=== PATIENT | male | born 1955 | race Caucasian/White ===

== ENCOUNTER 2018-02-05 14:49 | Inpatient (IN) | payer BC ==
[~2018-02-05] VITALS: Ht 175.3 cm; Wt 66.4 kg
[~2018-02-05 14:49] MED LIST: ALBU18HF INH; ASCO10004 PO; CALC1CAP8 PO; CEPH-368 PO; CHOL10003 PO; CYAN10005 PO; DOCU-131 PO; EMERGEN C PO; FLUT1DIS3 INH; HYDR2TAB29 PO; IPRA3AMP INH; METH750T87 PO; MORP-52 PO; MULT-717 PO; NAPR220C2 PO; OXYC-307 PO; OXYC15TA60 PO; POTA99TA3 PO; TAMS-11 PO; TIOT18CA INH; TIZA2TAB PO; ZINC100T PO; dayquil PO; magnesium PO
[2018-02-05 15:29] LABS: ALBUMIN 3.6 g/dL (3.4-5.0); ANION GAP 10 mmol/L (5-15); CALCIUM 8.8 mg/dL (8.5-10.1); CHLORIDE 101 mmol/L (98-107)
[2018-02-05 15:30] LABS: CREATININE 0.86 mg/dL (0.7-1.3)
[2018-02-05 15:36] LABS: MEAN CORPUSCULAR HGB CONC 34.2 g/dL (33.2-36.2); MEAN CORPUSCULAR VOLUME 96.7 fL (81-97); RED BLOOD COUNT 4.29 x10^6/uL (4.38-5.82)
[2018-02-05 15:42] LABS: MEAN PLATELET VOLUME 11.2 fL (7.4-10.4); PLATELET COUNT 57 x10^3/uL (130-400)
[2018-02-05 15:44] LABS: MD YES
[2018-02-05 16:10] LABS: BAND#(MANUAL) 1.95 x10^3/uL; BANDS%(MANUAL) 10 % (0-7); LYMPH#(MANUAL) 0.78 x10^3/uL (1-3.4); LYMPHS% (MANUAL) 4 % (22-44); MONOS#(MANUAL) 0.59 x10^3/uL (0.3-2.7); MONOS% (MANUAL) 3 % (2-9); SEG#(MANUAL) 16.19 x10^3/uL (1.8-6.8); SEGS% (MANUAL) 83 % (42-75)
[2018-02-05 16:12] LABS: <PLATELET ESTIMATE> DECREASED; <RBC MORPHOLOGY> NORMAL; GIANT PLATELETS 1+; LARGE PLATELETS 1+
[2018-02-05 16:13] LABS: PMNS WITH VACUOLES 1+
[2018-02-05] MEDS ORDERED: SODIUM CHLORIDE 0.9% 1,000ML IVBOLUS ONE (17:30)
[2018-02-05] MEDS ORDERED: SODIUM CHLORIDE FLUSH 10ML SYR IVF ONE (17:30)
[2018-02-05] MEDS ORDERED: MORPHINE SULFATE 4 MG/ML, 1ML IVPush PRN (17:30)
[2018-02-05] MEDS ORDERED: ONDANSETRON 2MG/ML, 2ML IVPush ONE (17:30)
[2018-02-05 18:06] LABS: MICROSCOPIC INDICATED
[2018-02-05 18:10] LABS: CULTURE INDICATED? YES
[2018-02-05] MEDS ORDERED: CEFTRIAXONE 1,000 MG in SODIUM CHLORIDE 0.9% 50 ML IV ONE (18:30)
[2018-02-05] MEDS ORDERED: CEFTRIAXONE PMX 1GM/50ML 50 ML ONE (18:54)
[2018-02-05] MEDS ORDERED: ALBUTEROL SULFATE 2.5 MG/3 ML NPPB PRN (19:30)
[2018-02-05] MEDS ORDERED: hydrALAzine 20 MG/ML, 1ML IVPush PRN (19:30)
[2018-02-05] MEDS: CEFTRIAXONE 1,000 MG in DEXTROSE 5% 50 ML IV SCH (19:30)
[2018-02-05] MEDS ORDERED: ONDANSETRON 2MG/ML, 2ML IVPush PRN (19:30)
[2018-02-05 19:40] VITALS: BP 123/77
[2018-02-05 20:06] VITALS: BP 123/77
[2018-02-05] MEDS: SODIUM CHLORIDE 0.9% 1,000 ML IV SCH (20:17)
[2018-02-05] MEDS: TAMSULOSIN 0.4 MG CAP.ER.24H PO SCH (20:17)
[2018-02-05] MEDS: KETOROLAC 30 MG/1 ML IM SCH (20:18)
[2018-02-05] MEDS ORDERED: ALBUTEROL/IPRATROPIUM 2.5MG/0.5MG, 3 ML NPPB PRN (23:00)
[2018-02-05] MEDS ORDERED: ACETAMINOPHEN 500 MG TABLET ONE (23:14)
[2018-02-05] MEDS: ACETAMINOPHEN 325 MG TABLET PO PRN (23:16)
[2018-02-06] MEDS: KETOROLAC 30 MG/1 ML IM SCH (01:54)
[2018-02-06 02:03] VITALS: BP 124/74
[2018-02-06 02:18] VITALS: BP 135/84
[2018-02-06] MEDS: SODIUM CHLORIDE 0.9% 1,000 ML IV SCH ×3 (03:46→19:55)
[2018-02-06 05:04] LABS: MEAN CORPUSCULAR HEMOGLOBIN 33.4 pg (27.5-34.5); MEAN CORPUSCULAR HGB CONC 34.3 g/dL (33.2-36.2); MEAN CORPUSCULAR VOLUME 97.3 fL (81-97); RED BLOOD COUNT 3.63 x10^6/uL (4.38-5.82)
[2018-02-06 05:06] LABS: PLATELET COUNT 39 x10^3/uL (130-400)
[2018-02-06 05:12] LABS: ALBUMIN 2.7 g/dL (3.4-5.0); ANION GAP 6 mmol/L (5-15); CALCIUM 8.2 mg/dL (8.5-10.1); CHLORIDE 106 mmol/L (98-107)
[2018-02-06 05:16] LABS: ALANINE AMINOTRANSFERASE 81 U/L (12-78); ALKALINE PHOSPHATASE 456 U/L (45-117); BILIRUBIN,TOTAL 0.9 mg/dL (0.2-1.0); CREATININE 0.72 mg/dL (0.7-1.3); TOTAL PROTEIN 5.5 g/dL (6.4-8.2)
[2018-02-06] MEDS ORDERED: ACETAMINOPHEN 500 MG TABLET ONE (05:21)
[2018-02-06 05:55] LABS: MD YES
[2018-02-06 05:56] LABS: <PLATELET ESTIMATE> DECREASED; <RBC MORPHOLOGY> NORMAL; BAND#(MANUAL) 0.45 x10^3/uL; BANDS%(MANUAL) 3 % (0-7); LYMPHS% (MANUAL) 4 % (22-44); MONOS% (MANUAL) 6 % (2-9); SEG#(MANUAL) 13.05 x10^3/uL (1.8-6.8); SEGS% (MANUAL) 87 % (42-75)
[2018-02-06] MEDS: ACETAMINOPHEN 325 MG TABLET PO PRN (05:56)
[2018-02-06 05:57] LABS: LARGE PLATELETS 1+
[2018-02-06] MEDS: KETOROLAC 30 MG/1 ML IV SCH ×3 (07:54→19:56)
[2018-02-06] MEDS: FLUTICASONE/VILANTEROL 100-25MCG/INH INH SCH (07:54)
[2018-02-06] MEDS: POLYETHYLENE GLYCOL 17 GM PACKET PO SCH (07:54)
[2018-02-06 08:42] VITALS: BP 134/77
[2018-02-06] MEDS ORDERED: IPRATROPIUM 0.5 MG/2.5 ML INHA NPPB SCH (09:00)
[2018-02-06 10:26] LABS: HIT RESULT NEGATIVE (NEGATIVE)
[2018-02-06 14:01] VITALS: BP 153/80
[2018-02-06 19:06] VITALS: BP 117/63
[2018-02-06] MEDS: CEFTRIAXONE 1,000 MG in DEXTROSE 5% 50 ML IV SCH (19:55)
[2018-02-06] MEDS: TAMSULOSIN 0.4 MG CAP.ER.24H PO SCH (19:56)
[2018-02-07] MEDS: KETOROLAC 30 MG/1 ML IV SCH ×3 (03:06→19:27)
[2018-02-07] MEDS: SODIUM CHLORIDE 0.9% 1,000 ML IV SCH ×3 (05:25→21:09)
[2018-02-07 05:36] LABS: MEAN CORPUSCULAR HEMOGLOBIN 33.4 pg (27.5-34.5); MEAN CORPUSCULAR HGB CONC 34.3 g/dL (33.2-36.2); MEAN CORPUSCULAR VOLUME 97.3 fL (81-97); MEAN PLATELET VOLUME 11.2 fL (7.4-10.4); PLATELET COUNT 55 x10^3/uL (130-400); RED BLOOD COUNT 3.39 x10^6/uL (4.38-5.82); RED CELL DISTRIBUTION WIDTH 12.7 % (9.4-14.8)
[2018-02-07 05:43] LABS: ALANINE AMINOTRANSFERASE 61 U/L (12-78); ALBUMIN 2.4 g/dL (3.4-5.0); ANION GAP 10 mmol/L (5-15); CALCIUM 7.3 mg/dL (8.5-10.1); CHLORIDE 106 mmol/L (98-107); CREATININE 0.63 mg/dL (0.7-1.3)
[2018-02-07 05:45] LABS: ALKALINE PHOSPHATASE 122 U/L (45-117); BILIRUBIN,TOTAL 0.9 mg/dL (0.2-1.0); TOTAL PROTEIN 5.1 g/dL (6.4-8.2)
[2018-02-07 06:08] LABS: BASOPHILS # (AUTO) 0.01 x10^3/uL (0-0.1); BASOPHILS % (AUTO) 0 % (0-1); EOSINOPHILS % (AUTO) 0 % (1-7); LYMPHOCYTES # (AUTO) 1.09 x10^3/uL (1-3.4); LYMPHOCYTES % (AUTO) 8 % (22-44); MD SCAN; MONOCYTES # (AUTO) 1.45 x10^3/uL (0.2-0.8); MONOCYTES % (AUTO) 11 % (2-9); NEUTROPHILS # (AUTO) 10.75 x10^3/uL (1.8-6.8); NEUTROPHILS % (AUTO) 81 % (42-75)
[2018-02-07] MEDS ORDERED: MAGNESIUM SULFATE PMX 2GM/50ML 50 ML IV ONE (08:30)
[2018-02-07 08:49] VITALS: BP 127/75
[2018-02-07] MEDS: ACETAMINOPHEN 325 MG TABLET PO PRN ×2 (08:56→16:30)
[2018-02-07] MEDS: DIAZEPAM 5 MG TABLET PO PRN (08:57)
[2018-02-07] MEDS: POLYETHYLENE GLYCOL 17 GM PACKET PO SCH (08:58)
[2018-02-07] MEDS: FLUTICASONE/VILANTEROL 100-25MCG/INH INH SCH (08:58)
[2018-02-07] MEDS ORDERED: OMNIPAQUE 350 MG/ML, 100ML BOTTLE ONE (09:28)
[2018-02-07] MEDS ORDERED: AZITHROMYCIN 500 MG in SODIUM CHLORIDE 0.9% 250 ML IV SCH (10:00)
[2018-02-07 10:07] LABS: MEAN CORPUSCULAR HEMOGLOBIN 33.7 pg (27.5-34.5); MEAN CORPUSCULAR HGB CONC 34.6 g/dL (33.2-36.2); MEAN CORPUSCULAR VOLUME 97.3 fL (81-97); MEAN PLATELET VOLUME 10.4 fL (7.4-10.4); PLATELET COUNT 59 x10^3/uL (130-400); RED BLOOD COUNT 3.33 x10^6/uL (4.38-5.82); RED CELL DISTRIBUTION WIDTH 13.1 % (9.4-14.8)
[2018-02-07 10:33] LABS: D-DIMER (DIC) 3.58 ug/mlFEU (0.00-0.52); PROTIME 10.9 Seconds (9.6-11.5)
[2018-02-07 10:46] LABS: BASOPHILS # (AUTO) 0.01 x10^3/uL (0-0.1); BASOPHILS % (AUTO) 0 % (0-1); EOSINOPHILS # (AUTO) 0.01 x10^3/uL (0-0.4); EOSINOPHILS % (AUTO) 0 % (1-7); LYMPHOCYTES # (AUTO) 0.83 x10^3/uL (1-3.4); LYMPHOCYTES % (AUTO) 6 % (22-44); MD SCAN; MONOCYTES # (AUTO) 1.35 x10^3/uL (0.2-0.8); MONOCYTES % (AUTO) 11 % (2-9); NEUTROPHILS # (AUTO) 10.69 x10^3/uL (1.8-6.8); NEUTROPHILS % (AUTO) 83 % (42-75)
[2018-02-07 13:18] VITALS: BP 120/73
[2018-02-07] MEDS ORDERED: HYDROmorphone 1 MG/ML, 1ML ONE (13:23)
[2018-02-07] MEDS: HYDROmorphone 2 MG/ML, 1ML IVPush PRN (13:27)
[2018-02-07] MEDS ORDERED: MIDAZOLAM 1 MG/ML, 2ML ONE ×2 (14:54)
[2018-02-07] MEDS ORDERED: FENTANYL PF 100 MCG/2ML ONE (14:54)
[2018-02-07] MEDS ORDERED: FLUMAZENIL 0.1 MG/1 ML, 5ML ONE (14:55)
[2018-02-07] MEDS ORDERED: NALOXONE 1 MG/ML, 2ML ONE (14:55)
[2018-02-07] MEDS ORDERED: LIDOCAINE 1%, 20ML ONE (15:10)
[2018-02-07] MEDS: CEFTRIAXONE 1,000 MG in DEXTROSE 5% 50 ML IV SCH (19:27)
[2018-02-07 19:30] VITALS: BP 105/68
[2018-02-07] MEDS ORDERED: PHARMACOKINETIC CONSULTATION MC ONE (20:30)
[2018-02-07] MEDS ORDERED: VANCOMYCIN PER PHARMACY MC PRN (20:30)
[2018-02-07] MEDS ORDERED: PHARMACOKINETIC MONITORING MC PRN (20:30)
[2018-02-07] MEDS: TAMSULOSIN 0.4 MG CAP.ER.24H PO SCH (21:08)
[2018-02-07] MEDS: VANCOMYCIN PMX 1GM/200ML 200 ML IV SCH (21:09)
[2018-02-07 23:07] VITALS: BP 126/60
[2018-02-08] MEDS: KETOROLAC 30 MG/1 ML IV SCH (01:16)
[2018-02-08 02:08] VITALS: BP 125/71
[2018-02-08] MEDS: SODIUM CHLORIDE 0.9% 1,000 ML IV SCH ×3 (04:07→22:07)
[2018-02-08 06:31] LABS: MEAN CORPUSCULAR HEMOGLOBIN 33.2 pg (27.5-34.5); MEAN CORPUSCULAR HGB CONC 34.1 g/dL (33.2-36.2); MEAN CORPUSCULAR VOLUME 97.3 fL (81-97); RED CELL DISTRIBUTION WIDTH 12.8 % (9.4-14.8)
[2018-02-08 06:32] LABS: CREATININE 0.65 mg/dL (0.7-1.3)
[2018-02-08 07:08] VITALS: BP 123/66
[2018-02-08 07:37] LABS: MEAN PLATELET VOLUME 9.6 fL (7.4-10.4); PLATELET COUNT 97 x10^3/uL (130-400)
[2018-02-08 07:39] LABS: BASOPHILS # (AUTO) 0.02 x10^3/uL (0-0.1); BASOPHILS % (AUTO) 0 % (0-1); EOSINOPHILS # (AUTO) 0.21 x10^3/uL (0-0.4); EOSINOPHILS % (AUTO) 1 % (1-7); LYMPHOCYTES # (AUTO) 0.99 x10^3/uL (1-3.4); LYMPHOCYTES % (AUTO) 7 % (22-44); MD SCAN; MONOCYTES # (AUTO) 1.57 x10^3/uL (0.2-0.8); MONOCYTES % (AUTO) 11 % (2-9); NEUTROPHILS # (AUTO) 11.88 x10^3/uL (1.8-6.8); NEUTROPHILS % (AUTO) 81 % (42-75)
[2018-02-08] MEDS: CEFTRIAXONE 2 GM in DEXTROSE 5% 50 ML IVPB SCH (08:00)
[2018-02-08] MEDS: DIAZEPAM 5 MG TABLET PO PRN (08:11)
[2018-02-08] MEDS: FLUTICASONE/VILANTEROL 100-25MCG/INH INH SCH (08:12)
[2018-02-08] MEDS: POLYETHYLENE GLYCOL 17 GM PACKET PO SCH (08:12)
[2018-02-08 08:22] LABS: % IRON SATURATION 6 % (20-55); IRON LEVEL 10 mcg/dL (65-175); TOTAL IRON BINDING CAPACITY 168 mcg/dL (250-450)
[2018-02-08] MEDS: VANCOMYCIN PMX 1GM/200ML 200 ML IV SCH ×2 (09:21→22:06)
[2018-02-08 12:07] VITALS: BP 110/66
[2018-02-08] MEDS: ACETAMINOPHEN 500 MG TABLET PO PRN (12:57)
[2018-02-08] MEDS: CEFUROXIME 1.5 GM in SODIUM CHLORIDE 0.9% 50 ML IV SCH ×2 (14:20→20:46)
[2018-02-08 14:36] LABS: HCT (SEDRATE) 31.5 % (39.2-51.8)
[2018-02-08] MEDS ORDERED: HYDROmorphone 1 MG/ML, 1ML ONE ×2 (16:41→22:17)
[2018-02-08] MEDS: HYDROmorphone 2 MG/ML, 1ML IVPush PRN ×2 (16:44→22:20)
[2018-02-08 17:04] VITALS: BP 107/49
[2018-02-08 21:53] VITALS: BP 114/57
[2018-02-08] MEDS: TAMSULOSIN 0.4 MG CAP.ER.24H PO SCH (22:06)
[2018-02-09] MEDS: CEFUROXIME 1.5 GM in SODIUM CHLORIDE 0.9% 50 ML IV SCH ×3 (02:32→19:06)
[2018-02-09 02:33] VITALS: BP 120/62
[2018-02-09] MEDS ORDERED: HYDROmorphone 1 MG/ML, 1ML ONE ×4 (02:40→21:39)
[2018-02-09] MEDS: HYDROmorphone 2 MG/ML, 1ML IVPush PRN ×4 (02:45→21:42)
[2018-02-09] MEDS: ACETAMINOPHEN 500 MG TABLET PO PRN ×3 (02:45→21:05)
[2018-02-09 05:43] LABS: BASOPHILS % (AUTO) 0 % (0-1); EOSINOPHILS # (AUTO) 0.05 x10^3/uL (0-0.4); EOSINOPHILS % (AUTO) 0 % (1-7); LYMPHOCYTES # (AUTO) 0.87 x10^3/uL (1-3.4); LYMPHOCYTES % (AUTO) 6 % (22-44); MD NO; MEAN CORPUSCULAR HEMOGLOBIN 33.5 pg (27.5-34.5); MEAN CORPUSCULAR HGB CONC 34.1 g/dL (33.2-36.2); MEAN CORPUSCULAR VOLUME 98.1 fL (81-97); MEAN PLATELET VOLUME 9.6 fL (7.4-10.4); MONOCYTES # (AUTO) 1.11 x10^3/uL (0.2-0.8); MONOCYTES % (AUTO) 8 % (2-9); NEUTROPHILS # (AUTO) 12.21 x10^3/uL (1.8-6.8); NEUTROPHILS % (AUTO) 86 % (42-75); PLATELET COUNT 145 x10^3/uL (130-400); RED BLOOD COUNT 3.12 x10^6/uL (4.38-5.82)
[2018-02-09 05:48] LABS: CHLORIDE 105 mmol/L (98-107)
[2018-02-09 05:54] LABS: ALANINE AMINOTRANSFERASE 39 U/L (12-78); ALBUMIN 1.9 g/dL (3.4-5.0); ALKALINE PHOSPHATASE 89 U/L (45-117); ANION GAP 7 mmol/L (5-15); BILIRUBIN,TOTAL 0.7 mg/dL (0.2-1.0); CALCIUM 7.5 mg/dL (8.5-10.1); CREATININE 0.55 mg/dL (0.7-1.3); TOTAL PROTEIN 4.8 g/dL (6.4-8.2)
[2018-02-09] MEDS: SODIUM CHLORIDE 0.9% 1,000 ML IV SCH ×2 (06:38→17:06)
[2018-02-09] MEDS: CEFTRIAXONE 2 GM in DEXTROSE 5% 50 ML IVPB SCH (08:55)
[2018-02-09] MEDS ORDERED: VANCOMYCIN 1,300 MG in SODIUM CHLORIDE 0.9% 250 ML IV SCH (09:00)
[2018-02-09] MEDS: FLUTICASONE/VILANTEROL 100-25MCG/INH INH SCH (09:00)
[2018-02-09] MEDS: POLYETHYLENE GLYCOL 17 GM PACKET PO SCH (09:00)
[2018-02-09 09:26] VITALS: BP 123/68
[2018-02-09 14:27] VITALS: BP 113/62
[2018-02-09] MEDS: DIAZEPAM 5 MG TABLET PO PRN (17:19)
[2018-02-09 19:50] VITALS: BP 109/63
[2018-02-09] MEDS: TAMSULOSIN 0.4 MG CAP.ER.24H PO SCH (21:05)
[2018-02-09 23:28] LABS: BASOPHILS # (AUTO) 0.03 x10^3/uL (0-0.1); BASOPHILS % (AUTO) 0 % (0-1); EOSINOPHILS # (AUTO) 0.01 x10^3/uL (0-0.4); EOSINOPHILS % (AUTO) 0 % (1-7); LYMPHOCYTES # (AUTO) 0.92 x10^3/uL (1-3.4); LYMPHOCYTES % (AUTO) 6 % (22-44); MD NO; MEAN CORPUSCULAR HEMOGLOBIN 32.9 pg (27.5-34.5); MEAN CORPUSCULAR HGB CONC 33.8 g/dL (33.2-36.2); MEAN CORPUSCULAR VOLUME 97.4 fL (81-97); MEAN PLATELET VOLUME 9.2 fL (7.4-10.4); MONOCYTES # (AUTO) 1.14 x10^3/uL (0.2-0.8); MONOCYTES % (AUTO) 7 % (2-9); NEUTROPHILS # (AUTO) 14.07 x10^3/uL (1.8-6.8); NEUTROPHILS % (AUTO) 87 % (42-75); PLATELET COUNT 204 x10^3/uL (130-400); RED CELL DISTRIBUTION WIDTH 12.7 % (9.4-14.8)
[2018-02-09 23:39] LABS: ANION GAP 8 mmol/L (5-15); CALCIUM 7.5 mg/dL (8.5-10.1); CHLORIDE 106 mmol/L (98-107)
[2018-02-09] MEDS: PANTOPRAZOLE 80 MG in SODIUM CHLORIDE 0.9% 100 ML IV SCH (23:55)
[2018-02-10] MEDS ORDERED: POTASSIUM CHLORIDE 40 MEQ in SODIUM CHLORIDE 0.9% 500 ML IV ONE (01:00)
[2018-02-10 01:20] VITALS: BP 94/57
[2018-02-10] MEDS: SODIUM CHLORIDE 0.9% 1,000 ML IV SCH ×2 (01:38→10:41)
[2018-02-10] MEDS ORDERED: HYDROmorphone 1 MG/ML, 1ML ONE ×3 (01:55→23:11)
[2018-02-10] MEDS: HYDROmorphone 2 MG/ML, 1ML IVPush PRN ×3 (01:59→23:14)
[2018-02-10 02:03] VITALS: BP 96/57
[2018-02-10] MEDS: DIAZEPAM 5 MG TABLET PO PRN (02:11)
[2018-02-10] MEDS: CEFUROXIME 1.5 GM in SODIUM CHLORIDE 0.9% 50 ML IV SCH ×3 (02:55→18:08)
[2018-02-10 03:48] VITALS: BP 106/65
[2018-02-10] MEDS: ACETAMINOPHEN 500 MG TABLET PO PRN (04:16)
[2018-02-10 07:37] VITALS: BP 138/72
[2018-02-10] MEDS: POLYETHYLENE GLYCOL 17 GM PACKET PO SCH (09:00)
[2018-02-10] MEDS: FLUTICASONE/VILANTEROL 100-25MCG/INH INH SCH (09:00)
[2018-02-10] MEDS: PANTOPRAZOLE 80 MG in SODIUM CHLORIDE 0.9% 100 ML IV SCH (12:47)
[2018-02-10 12:57] VITALS: BP 141/86
[2018-02-10] MEDS: TAMSULOSIN 0.4 MG CAP.ER.24H PO SCH (20:01)
[2018-02-10 20:04] VITALS: BP 116/62
[2018-02-11 02:40] VITALS: BP 96/56
[2018-02-11] MEDS: CEFUROXIME 1.5 GM in SODIUM CHLORIDE 0.9% 50 ML IV SCH ×3 (02:46→19:36)
[2018-02-11 05:55] LABS: ANION GAP 8 mmol/L (5-15); CALCIUM 7.6 mg/dL (8.5-10.1); CHLORIDE 107 mmol/L (98-107); CREATININE 0.47 mg/dL (0.7-1.3)
[2018-02-11 06:16] LABS: BASOPHILS # (AUTO) 0.01 x10^3/uL (0-0.1); BASOPHILS % (AUTO) 0 % (0-1); EOSINOPHILS # (AUTO) 0.03 x10^3/uL (0-0.4); EOSINOPHILS % (AUTO) 0 % (1-7); LYMPHOCYTES # (AUTO) 0.99 x10^3/uL (1-3.4); LYMPHOCYTES % (AUTO) 8 % (22-44); MD NO; MEAN CORPUSCULAR HEMOGLOBIN 33.2 pg (27.5-34.5); MEAN CORPUSCULAR HGB CONC 33.9 g/dL (33.2-36.2); MEAN CORPUSCULAR VOLUME 97.8 fL (81-97); MEAN PLATELET VOLUME 9.3 fL (7.4-10.4); MONOCYTES # (AUTO) 1.02 x10^3/uL (0.2-0.8); MONOCYTES % (AUTO) 9 % (2-9); NEUTROPHILS # (AUTO) 9.98 x10^3/uL (1.8-6.8); NEUTROPHILS % (AUTO) 83 % (42-75); PLATELET COUNT 289 x10^3/uL (130-400); RED BLOOD COUNT 2.83 x10^6/uL (4.38-5.82); RED CELL DISTRIBUTION WIDTH 13.1 % (9.4-14.8)
[2018-02-11] MEDS: POLYETHYLENE GLYCOL 17 GM PACKET PO SCH (09:00)
[2018-02-11] MEDS ORDERED: PANTOPRAZOLE 40 MG IV IVPush SCH (09:00)
[2018-02-11] MEDS: FLUTICASONE/VILANTEROL 100-25MCG/INH INH SCH (09:00)
[2018-02-11] MEDS ORDERED: HYDROmorphone 1 MG/ML, 1ML ONE ×2 (09:15→20:19)
[2018-02-11] MEDS: HYDROmorphone 2 MG/ML, 1ML IVPush PRN ×2 (09:24→20:23)
[2018-02-11] MEDS ORDERED: PICC FLUSH PROTOCOL XX SCH (11:30)
[2018-02-11 14:06] VITALS: BP 144/73
[2018-02-11 17:16] LABS: BASOPHILS % (AUTO) 0 % (0-1); EOSINOPHILS # (AUTO) 0.03 x10^3/uL (0-0.4); EOSINOPHILS % (AUTO) 0 % (1-7); LYMPHOCYTES # (AUTO) 0.93 x10^3/uL (1-3.4); LYMPHOCYTES % (AUTO) 8 % (22-44); MD NO; MEAN CORPUSCULAR HEMOGLOBIN 33.8 pg (27.5-34.5); MEAN CORPUSCULAR HGB CONC 34.5 g/dL (33.2-36.2); MEAN CORPUSCULAR VOLUME 97.9 fL (81-97); MEAN PLATELET VOLUME 8.8 fL (7.4-10.4); MONOCYTES # (AUTO) 0.93 x10^3/uL (0.2-0.8); MONOCYTES % (AUTO) 8 % (2-9); NEUTROPHILS # (AUTO) 9.82 x10^3/uL (1.8-6.8); NEUTROPHILS % (AUTO) 84 % (42-75); PLATELET COUNT 324 x10^3/uL (130-400); RED BLOOD COUNT 2.94 x10^6/uL (4.38-5.82); RED CELL DISTRIBUTION WIDTH 12.8 % (9.4-14.8)
[2018-02-11 19:32] VITALS: BP 139/57
[2018-02-11] MEDS: TAMSULOSIN 0.4 MG CAP.ER.24H PO SCH (20:23)
[2018-02-12 00:22] LABS: OCCULT BLOOD POSITIVE (NEGATIVE)
[2018-02-12] MEDS ORDERED: HYDROmorphone 1 MG/ML, 1ML ONE ×3 (00:57→22:20)
[2018-02-12] MEDS: HYDROmorphone 2 MG/ML, 1ML IVPush PRN ×3 (01:10→22:32)
[2018-02-12 01:32] VITALS: BP 124/76
[2018-02-12] MEDS: CEFUROXIME 1.5 GM in SODIUM CHLORIDE 0.9% 50 ML IV SCH ×3 (04:11→19:36)
[2018-02-12 04:29] LABS: ANION GAP 8 mmol/L (5-15); CALCIUM 7.7 mg/dL (8.5-10.1); CHLORIDE 103 mmol/L (98-107); CREATININE 0.43 mg/dL (0.7-1.3)
[2018-02-12] MEDS: POLYETHYLENE GLYCOL 17 GM PACKET PO SCH (08:34)
[2018-02-12] MEDS: PANTOPROZOLE 40MG TABLET PO SCH (08:35)
[2018-02-12] MEDS: FLUTICASONE/VILANTEROL 100-25MCG/INH INH SCH (08:35)
[2018-02-12 09:41] VITALS: BP 144/80
[2018-02-12] MEDS ORDERED: CEFU1.5V IV (12:02)
[2018-02-12] MEDS ORDERED: PANT40TA5 PO (12:02)
[2018-02-12 12:56] LABS: OCCULT BLOOD POSITIVE (NEGATIVE)
[2018-02-12 14:13] VITALS: BP 141/71
[2018-02-12 19:30] VITALS: BP 122/81
[2018-02-12] MEDS: TAMSULOSIN 0.4 MG CAP.ER.24H PO SCH (19:36)
[2018-02-12 23:16] LABS: OCCULT BLOOD POSITIVE (NEGATIVE)
[2018-02-13] MEDS: CEFUROXIME 1.5 GM in SODIUM CHLORIDE 0.9% 50 ML IV SCH ×3 (03:24→19:53)
[2018-02-13 03:43] VITALS: BP 132/66
[2018-02-13 08:24] VITALS: BP 124/69
[2018-02-13] MEDS: POLYETHYLENE GLYCOL 17 GM PACKET PO SCH (08:43)
[2018-02-13] MEDS: FLUTICASONE/VILANTEROL 100-25MCG/INH INH SCH (08:44)
[2018-02-13] MEDS: PANTOPROZOLE 40MG TABLET PO SCH (08:49)
[2018-02-13] MEDS ORDERED: HYDROmorphone 1 MG/ML, 1ML ONE ×2 (10:52→22:27)
[2018-02-13] MEDS: HYDROmorphone 2 MG/ML, 1ML IVPush PRN ×2 (10:53→22:31)
[2018-02-13 14:56] VITALS: BP 121/71
[2018-02-13] MEDS: TAMSULOSIN 0.4 MG CAP.ER.24H PO SCH (19:53)
[2018-02-13 21:55] VITALS: BP 150/92
[2018-02-14 02:43] VITALS: BP 125/74
[2018-02-14] MEDS: CEFUROXIME 1.5 GM in SODIUM CHLORIDE 0.9% 50 ML IV SCH ×3 (03:51→20:07)
[2018-02-14 04:04] LABS: BASOPHILS # (AUTO) 0.09 x10^3/uL (0-0.1); BASOPHILS % (AUTO) 2 % (0-1); EOSINOPHILS # (AUTO) 0.08 x10^3/uL (0-0.4); EOSINOPHILS % (AUTO) 2 % (1-7); LYMPHOCYTES # (AUTO) 1.26 x10^3/uL (1-3.4); LYMPHOCYTES % (AUTO) 22 % (22-44); MD NO; MEAN CORPUSCULAR HEMOGLOBIN 33.3 pg (27.5-34.5); MEAN CORPUSCULAR HGB CONC 33.8 g/dL (33.2-36.2); MEAN CORPUSCULAR VOLUME 98.4 fL (81-97); MEAN PLATELET VOLUME 9.2 fL (7.4-10.4); MONOCYTES # (AUTO) 0.85 x10^3/uL (0.2-0.8); MONOCYTES % (AUTO) 15 % (2-9); NEUTROPHILS # (AUTO) 3.46 x10^3/uL (1.8-6.8); NEUTROPHILS % (AUTO) 60 % (42-75); PLATELET COUNT 465 x10^3/uL (130-400); RED CELL DISTRIBUTION WIDTH 12.8 % (9.4-14.8)
[2018-02-14 04:08] LABS: ANION GAP 4 mmol/L (5-15); CALCIUM 7.6 mg/dL (8.5-10.1); CHLORIDE 102 mmol/L (98-107); CREATININE 0.42 mg/dL (0.7-1.3)
[2018-02-14] MEDS ORDERED: HYDROmorphone 1 MG/ML, 1ML ONE ×2 (06:45→21:59)
[2018-02-14] MEDS: HYDROmorphone 2 MG/ML, 1ML IVPush PRN ×2 (06:50→22:03)
[2018-02-14] MEDS: FLUTICASONE/VILANTEROL 100-25MCG/INH INH SCH (09:00)
[2018-02-14] MEDS: POLYETHYLENE GLYCOL 17 GM PACKET PO SCH (09:00)
[2018-02-14] MEDS: PANTOPROZOLE 40MG TABLET PO SCH (09:05)
[2018-02-14 12:57] VITALS: BP 144/81
[2018-02-14] MEDS: ACETAMINOPHEN 500 MG TABLET PO PRN (13:18)
[2018-02-14] MEDS ORDERED: POTASSIUM CHLORIDE 20 MEQ TAB.ER.PRT PO ONE (14:30)
[2018-02-14 20:07] VITALS: BP 129/78
[2018-02-14] MEDS: TAMSULOSIN 0.4 MG CAP.ER.24H PO SCH (20:15)
[2018-02-15 01:35] VITALS: BP 132/74
[2018-02-15] MEDS: CEFUROXIME 1.5 GM in SODIUM CHLORIDE 0.9% 50 ML IV SCH ×2 (03:29→11:25)
[2018-02-15 05:51] LABS: ALBUMIN 2.1 g/dL (3.4-5.0); ANION GAP 7 mmol/L (5-15); CALCIUM 7.5 mg/dL (8.5-10.1); CHLORIDE 102 mmol/L (98-107)
[2018-02-15 05:58] LABS: MEAN CORPUSCULAR HEMOGLOBIN 33.1 pg (27.5-34.5); MEAN CORPUSCULAR HGB CONC 34.1 g/dL (33.2-36.2); MEAN CORPUSCULAR VOLUME 97.2 fL (81-97); RED BLOOD COUNT 2.91 x10^6/uL (4.38-5.82); RED CELL DISTRIBUTION WIDTH 13.2 % (9.4-14.8)
[2018-02-15 06:01] LABS: ALANINE AMINOTRANSFERASE 60 U/L (12-78); ALKALINE PHOSPHATASE 71 U/L (45-117); BILIRUBIN,TOTAL 0.7 mg/dL (0.2-1.0); CREATININE 0.42 mg/dL (0.7-1.3); TOTAL PROTEIN 5.4 g/dL (6.4-8.2)
[2018-02-15 06:15] LABS: BASOPHILS # (AUTO) 0.09 x10^3/uL (0-0.1); BASOPHILS % (AUTO) 1 % (0-1); EOSINOPHILS # (AUTO) 0.07 x10^3/uL (0-0.4); EOSINOPHILS % (AUTO) 1 % (1-7); LYMPHOCYTES # (AUTO) 0.97 x10^3/uL (1-3.4); LYMPHOCYTES % (AUTO) 14 % (22-44); MD SCAN; MEAN PLATELET VOLUME 9.5 fL (7.4-10.4); MONOCYTES # (AUTO) 0.75 x10^3/uL (0.2-0.8); MONOCYTES % (AUTO) 11 % (2-9); NEUTROPHILS % (AUTO) 73 % (42-75); PLATELET COUNT 521 x10^3/uL (130-400)
[2018-02-15 06:27] LABS: HCT (SEDRATE) 27.5 % (39.2-51.8)
[2018-02-15 07:40] VITALS: BP 143/80
[2018-02-15] MEDS: FLUTICASONE/VILANTEROL 100-25MCG/INH INH SCH (09:00)
[2018-02-15] MEDS: POLYETHYLENE GLYCOL 17 GM PACKET PO SCH (09:00)
[2018-02-15] MEDS ORDERED: HYDROmorphone 1 MG/ML, 1ML ONE (09:11)
[2018-02-15] MEDS: HYDROmorphone 2 MG/ML, 1ML IVPush PRN (09:12)
[2018-02-15] MEDS: PANTOPROZOLE 40MG TABLET PO SCH (09:12)
[2018-02-15] MEDS ORDERED: POTASSIUM CHLORIDE 20 MEQ TAB.ER.PRT ONE (11:22)
[2018-02-15] MEDS: POTASSIUM CHLORIDE 20 MEQ TAB.ER.PRT PO SCH ×2 (11:25→15:49)
[2018-02-15 13:10] VITALS: BP 120/71
== END 2018-02-15 16:45 | DRG 871 ==
LOC: ED 17:55 → EDIP 18:40 → 4NOR 19:30
PROVIDERS: ADMIT Hospitalist; ATTEND Hospitalist
PROC: 009Y3ZX Drainage of Lumbar Spinal Cord, Percutaneous Approach, Diagnostic (ICD-10-PCS; 2018-02-07)
PROC: 02HV33Z Insertion of Infusion Device into Superior Vena Cava, Percutaneous Approach (ICD-10-PCS; principal; 2018-02-11)
PROC: B548ZZA Ultrasonography of Superior Vena Cava, Guidance (ICD-10-PCS; 2018-02-11)
DX: A41.59 Other Gram-negative sepsis (principal); E43 Unspecified severe protein-calorie malnutrition; D69.6 Thrombocytopenia, unspecified; M86.9 Osteomyelitis, unspecified; N10 Acute pyelonephritis; K92.1 Melena; N39.0 Urinary tract infection, site not specified; D64.9 Anemia, unspecified; E87.6 Hypokalemia; G89.29 Other chronic pain; I10 Essential (primary) hypertension; G56.03 Carpal tunnel syndrome, bilateral upper limbs; M54.5 Low back pain; J44.9 Chronic obstructive pulmonary disease, unspecified; M46.46 Discitis, unspecified, lumbar region; R65.20 Severe sepsis without septic shock; Z72.0 Tobacco use; Z85.828 Personal history of other malignant neoplasm of skin; Z68.21 Body mass index [BMI] 21.0-21.9, adult; Z88.0 Allergy status to penicillin
CPT/HCPCS: 36415; 36569; 62267; 71045; 72072; 72110; 72193; 75989; 76937; 77001; 80048; 80053; 80202; 81001; 82040; 82272; 82565; 83540; 83550; 83605; 83735; 84100; 84132; 84520; 85025; 85049; 85379; 85384; 85610; 85651; 85730; 86022; 86140; 87040; 87070; 87075; 87077; 87086; 87102; 87116; 87186; 87205; 87206; 93005; 93306; 94640; 96374; 99156; 99157; J0456; J0696; J0697; J1170; J1885; J2250; J3010; J3370; J3480; J3490; J7620; Q9967; C1751; C9113; J2310; J3475; J7030; J7040; J7050

== ENCOUNTER 2019-06-17 09:19 | Outpatient (CLI) | payer BC ==
[~2019-06-17 09:19] MED LIST changes: +CEFU1.5V IV; -IPRA3AMP INH; +IPRA3AMP30 INH; +PANT40TA5 PO
[2019-06-17] MEDS ORDERED: OMNIPAQUE 350 MG/ML, 75ML BOTTLE ONE (15:19)
== END 2019-06-17 23:59 | disposition home or self-care (01) ==
LOC: CFH 09:19
PROVIDERS: ATTEND Internal Medicine
DX: S22.42XA Multiple fractures of ribs, left side, initial encounter for closed fracture (principal); J43.9 Emphysema, unspecified; R91.8 Other nonspecific abnormal finding of lung field; X58.XXXA Exposure to other specified factors, initial encounter; Y93.89 Activity, other specified; Y92.89 Other specified places as the place of occurrence of the external cause; Y99.8 Other external cause status
CPT/HCPCS: 71260; Q9967

== ENCOUNTER 2020-06-15 13:07 | Inpatient (IN) | payer BC ==
[~2020-06-15] VITALS: Ht 172.7 cm; Wt 63.2 kg
[~2020-06-15 13:07] MED LIST changes: +ALBU0.63 NEB; +CIPR500T87 PO; +CYAN-27 PO; -CYAN10005 PO; +FLUT1BLS3 IH; +POLY17PO5 PO; -TIZA2TAB PO; +TIZA2TAB4 PO
[2020-06-15] MEDS ORDERED: TRAM50TA2 PO (13:56)
--- NOTE | 2020-06-15 14:00 | NUR ---
ASSUMED CARE OF PT FOR PRIMARY RN MITZY WONG'S LUNCH BREAK. PT REPORTS FREQUENT SYNCOPAL EPISODES FOR MONTHS WITH ONE RESULTING IN BROKEN LEFT HUMERUS AND CLAVICLE. PT ON MONITOR. PT TO BE ADMITTED. PT REPORTS LOW POTASSIUM AND CALCIUM PER DR. ARNDT WHO SENT PT TO THE ER.
[2020-06-15 14:02] LABS: BASOPHILS # (AUTO) 0.03 x10^3/uL (0-0.1); BASOPHILS % (AUTO) 0 % (0-1); EOSINOPHILS # (AUTO) 0.13 x10^3/uL (0-0.4); EOSINOPHILS % (AUTO) 2 % (1-7); LYMPHOCYTES # (AUTO) 1.23 x10^3/uL (1-3.4); LYMPHOCYTES % (AUTO) 17 % (22-44); MD NO; MEAN CORPUSCULAR HEMOGLOBIN 31.9 pg (27.5-34.5); MEAN CORPUSCULAR HGB CONC 32.7 g/dL (33.2-36.2); MEAN CORPUSCULAR VOLUME 97.5 fL (81-97); MONOCYTES # (AUTO) 0.57 x10^3/uL (0.2-0.8); MONOCYTES % (AUTO) 8 % (2-9); NEUTROPHILS % (AUTO) 73 % (42-75); PLATELET COUNT 128 x10^3/uL (130-400); RED BLOOD COUNT 4.24 x10^6/uL (4.38-5.82); RED CELL DISTRIBUTION WIDTH 14.1 % (9.4-14.8)
[2020-06-15 14:06] LABS: ALANINE AMINOTRANSFERASE 40 U/L (12-78); ALBUMIN 3.4 g/dL (3.4-5.0); ANION GAP 9 mmol/L (5-15); CHLORIDE 100 mmol/L (98-107)
[2020-06-15 14:07] LABS: ALKALINE PHOSPHATASE 127 U/L (45-117); BILIRUBIN,TOTAL 1.7 mg/dL (0.2-1.0); TOTAL PROTEIN 6.4 g/dL (6.4-8.2)
--- NOTE | 2020-06-15 14:35 | NUR ---
REPORT TO MITZY WONG.
--- NOTE | 2020-06-15 15:30 | NUR ---
IMAGING COMPLETE. POC FOR ADMIT. VSS
--- NOTE | 2020-06-15 16:05 | NUR ---
[facility] AT BEDSIDE
[2020-06-15] MEDS ORDERED: THIAMINE 200 MG in SODIUM CHLORIDE 0.9% 50 ML IV ONE (16:30)
[2020-06-15] MEDS ORDERED: ONDANSETRON 2MG/ML, 2ML IVPush PRN (16:30)
[2020-06-15 16:56] LABS: INTERNATIONAL NORMALIZED RATIO 1.02 (0.93-1.1); PROTHROMBIN TIME 10.8 Seconds (9.6-11.5)
[2020-06-15] MEDS: POTASSIUM CHLORIDE 20 MEQ, MAGNESIUM SULFATE 1 GM, FOLIC ACID 1 MG, THIAMINE 200 MG, MV... IV SCH (16:58)
[2020-06-15] MEDS ORDERED: LORazepam 0.5MG TABLET PO PRN (17:00)
[2020-06-15] MEDS ORDERED: LORazepam 1MG TABLET PO PRN ×4 (17:00)
[2020-06-15] MEDS ORDERED: LORazepam 2 MG/ML, 1ML IV PRN ×5 (17:00)
[2020-06-15 17:12] LABS: % IRON SATURATION 25 % (20-55); IRON LEVEL 65 mcg/dL (65-175); TOTAL IRON BINDING CAPACITY 264 mcg/dL (250-450)
[2020-06-15 17:14] LABS: TROPONIN I < 0.015 ng/mL (0.000-0.045)
--- NOTE | 2020-06-15 17:30 | NUR ---
PT RESTING, WATCHING TV. PT VSS. IVF
[2020-06-15] MEDS ORDERED: OMNIPAQUE 350 MG/ML, 100ML BOTTLE ONE (18:14)
--- NOTE | 2020-06-15 18:40 | NUR ---
REPORT TO MICHAEL
[2020-06-15 20:30] VITALS: BP 136/82
[2020-06-15 21:20] VITALS: BP 163/79
[2020-06-15 21:21] VITALS: BP 151/78
[2020-06-15 21:24] VITALS: BP 126/76
[2020-06-15] MEDS: MELATONIN 5 MG TABLET PO PRN (22:30)
[2020-06-15] MEDS: OXYcodone IR 5MG TABLET PO PRN (22:30)
[2020-06-15 23:19] LABS: TROPONIN I < 0.015 ng/mL (0.000-0.045)
[2020-06-16] VITALS (7 sets, daily range): BP systolic 126–162; BP diastolic 79–89
[2020-06-16 01:42] LABS: MICROSCOPIC AUTO
[2020-06-16] MEDS: OXYcodone IR 5MG TABLET PO PRN ×3 (05:27→22:26)
[2020-06-16 06:06] LABS: BASOPHILS # (AUTO) 0.03 x10^3/uL (0-0.1); BASOPHILS % (AUTO) 1 % (0-1); EOSINOPHILS # (AUTO) 0.16 x10^3/uL (0-0.4); EOSINOPHILS % (AUTO) 3 % (1-7); LYMPHOCYTES # (AUTO) 1.31 x10^3/uL (1-3.4); LYMPHOCYTES % (AUTO) 24 % (22-44); MD NO; MEAN CORPUSCULAR HEMOGLOBIN 31.9 pg (27.5-34.5); MEAN CORPUSCULAR HGB CONC 32.7 g/dL (33.2-36.2); MEAN CORPUSCULAR VOLUME 97.8 fL (81-97); MEAN PLATELET VOLUME 8.9 fL (7.4-10.4); MONOCYTES # (AUTO) 0.65 x10^3/uL (0.2-0.8); MONOCYTES % (AUTO) 12 % (2-9); NEUTROPHILS # (AUTO) 3.36 x10^3/uL (1.8-6.8); NEUTROPHILS % (AUTO) 61 % (42-75); PLATELET COUNT 106 x10^3/uL (130-400); RED CELL DISTRIBUTION WIDTH 14.1 % (9.4-14.8)
[2020-06-16 06:16] LABS: CHLORIDE 103 mmol/L (98-107)
[2020-06-16 06:32] LABS: ALANINE AMINOTRANSFERASE 34 U/L (12-78); ALBUMIN 2.9 g/dL (3.4-5.0); ALKALINE PHOSPHATASE 121 U/L (45-117); ANION GAP 8 mmol/L (5-15); BILIRUBIN,TOTAL 1.6 mg/dL (0.2-1.0); CALCIUM 8.2 mg/dL (8.5-10.1); CREATININE 0.73 mg/dL (0.7-1.3); TOTAL PROTEIN 5.7 g/dL (6.4-8.2)
[2020-06-16] MEDS ORDERED: POTASSIUM CHLORIDE 10% 40 MEQ/30 ML UDC PO ONE (07:00)
[2020-06-16] MEDS: HEPARIN 5,000 UNITS/ML, 1ML SQ SCH ×2 (09:14→20:36)
[2020-06-16] MEDS: PANTOPRAZOLE 40 MG IV IVPush SCH (09:14)
[2020-06-16] MEDS: POTASSIUM CHLORIDE 20 MEQ, MAGNESIUM SULFATE 1 GM, FOLIC ACID 1 MG, THIAMINE 200 MG, MV... IV SCH (16:37)
[2020-06-17] VITALS (7 sets, daily range): BP systolic 119–165; BP diastolic 75–92
[2020-06-17 07:10] LABS: CHLORIDE 108 mmol/L (98-107)
[2020-06-17 07:20] LABS: ALANINE AMINOTRANSFERASE 28 U/L (12-78); ALBUMIN 2.7 g/dL (3.4-5.0); ALKALINE PHOSPHATASE 110 U/L (45-117); ANION GAP 7 mmol/L (5-15); BILIRUBIN,TOTAL 1.3 mg/dL (0.2-1.0); CALCIUM 8.2 mg/dL (8.5-10.1); CREATININE 0.59 mg/dL (0.7-1.3); TOTAL PROTEIN 5.8 g/dL (6.4-8.2)
[2020-06-17 07:38] LABS: BASOPHILS # (AUTO) 0.02 x10^3/uL (0-0.1); BASOPHILS % (AUTO) 0 % (0-1); EOSINOPHILS # (AUTO) 0.09 x10^3/uL (0-0.4); EOSINOPHILS % (AUTO) 2 % (1-7); LYMPHOCYTES # (AUTO) 1.16 x10^3/uL (1-3.4); LYMPHOCYTES % (AUTO) 22 % (22-44); MD SCAN; MEAN CORPUSCULAR HEMOGLOBIN 32.3 pg (27.5-34.5); MEAN CORPUSCULAR HGB CONC 32.8 g/dL (33.2-36.2); MEAN CORPUSCULAR VOLUME 98.4 fL (81-97); MEAN PLATELET VOLUME 9.7 fL (7.4-10.4); MONOCYTES # (AUTO) 0.54 x10^3/uL (0.2-0.8); MONOCYTES % (AUTO) 10 % (2-9); NEUTROPHILS # (AUTO) 3.42 x10^3/uL (1.8-6.8); NEUTROPHILS % (AUTO) 65 % (42-75); PLATELET COUNT 92 x10^3/uL (130-400); RED BLOOD COUNT 4.15 x10^6/uL (4.38-5.82); RED CELL DISTRIBUTION WIDTH 14.1 % (9.4-14.8)
[2020-06-17] MEDS: OXYcodone IR 5MG TABLET PO PRN ×3 (08:05→22:12)
[2020-06-17] MEDS: HEPARIN 5,000 UNITS/ML, 1ML SQ SCH ×2 (08:05→20:36)
[2020-06-17] MEDS: PANTOPRAZOLE 40 MG IV IVPush SCH (08:05)
[2020-06-17] MEDS ORDERED: ACETAMINOPHEN 500 MG TABLET PO PRN (10:30)
[2020-06-17] MEDS: POTASSIUM CHLORIDE 20 MEQ, MAGNESIUM SULFATE 1 GM, FOLIC ACID 1 MG, THIAMINE 200 MG, MV... IV SCH (17:02)
[2020-06-17] MEDS: MELATONIN 5 MG TABLET PO PRN (22:11)
[2020-06-17 22:44] LABS: OCCULT BLOOD NEGATIVE (NEGATIVE)
[2020-06-18 02:00] VITALS: BP 118/56
[2020-06-18] MEDS: OXYcodone IR 5MG TABLET PO PRN ×4 (04:58→23:42)
[2020-06-18 06:45] VITALS: BP 115/81
[2020-06-18] MEDS: PANTOPRAZOLE 40 MG IV IVPush SCH (07:39)
[2020-06-18] MEDS: HEPARIN 5,000 UNITS/ML, 1ML SQ SCH ×2 (07:39→19:58)
[2020-06-18 13:17] VITALS: BP 147/79
[2020-06-18] MEDS: POTASSIUM CHLORIDE 20 MEQ, MAGNESIUM SULFATE 1 GM, FOLIC ACID 1 MG, THIAMINE 200 MG, MV... IV SCH (17:29)
[2020-06-18 19:15] VITALS: BP 163/81
[2020-06-19 01:37] VITALS: BP 152/83
[2020-06-19 06:31] VITALS: BP 117/74
[2020-06-19] MEDS: HEPARIN 5,000 UNITS/ML, 1ML SQ SCH (08:28)
[2020-06-19] MEDS: PANTOPRAZOLE 40 MG IV IVPush SCH (08:28)
[2020-06-19] MEDS: OXYcodone IR 5MG TABLET PO PRN ×2 (08:41→14:49)
[2020-06-19 13:02] VITALS: BP 123/80
[2020-06-19] MEDS ORDERED: MULT-449 PO (13:49)
[2020-06-19] MEDS ORDERED: OXYC5TAB3 PO (13:49)
[2020-06-19] MEDS ORDERED: PANT40TA3 PO (13:49)
== END 2020-06-19 17:06 | disposition home or self-care (01) | DRG 312 ==
LOC: ED 13:54 → EDIP 16:38 → 4WST 18:50 → DCLOUNGE 06-19 16:49
PROVIDERS: ADMIT Internal Medicine; ATTEND Internal Medicine
DX: I95.1 Orthostatic hypotension (principal); S42.292A Other displaced fracture of upper end of left humerus, initial encounter for closed fracture; F10.239 Alcohol dependence with withdrawal, unspecified; E83.51 Hypocalcemia; E87.6 Hypokalemia; J44.9 Chronic obstructive pulmonary disease, unspecified; K57.90 Diverticulosis of intestine, part unspecified, without perforation or abscess without bleeding; K70.9 Alcoholic liver disease, unspecified; D69.6 Thrombocytopenia, unspecified; W01.0XXA Fall on same level from slipping, tripping and stumbling without subsequent striking against object, initial encounter; N32.89 Other specified disorders of bladder; N40.0 Benign prostatic hyperplasia without lower urinary tract symptoms; Z85.828 Personal history of other malignant neoplasm of skin; Z87.891 Personal history of nicotine dependence; Y93.89 Activity, other specified; Y92.89 Other specified places as the place of occurrence of the external cause; Y99.8 Other external cause status; Z79.899 Other long term (current) drug therapy; Y90.9 Presence of alcohol in blood, level not specified; Z20.828 Contact with and (suspected) exposure to other viral communicable diseases
CPT/HCPCS: 36415; 70450; 71045; 71260; 74177; 80053; 81001; 82272; 82330; 83540; 83550; 83690; 83735; 84100; 84443; 84484; 85025; 85610; 87086; 87635; 93005; 93306; 93880; 95819; 96365; 99285; G0378; J1644; J3411; J3475; J3480; J7070; Q9967; C9113

== ENCOUNTER 2020-08-30 23:24 | Inpatient (IN) | payer BC ==
[~2020-08-30] VITALS: Ht 172.7 cm; Wt 52.9 kg
[~2020-08-30 23:24] MED LIST changes: +ASCO100018 PO; -ASCO10004 PO; +MULT-449 PO; +OXYC5TAB3 PO; +PANT40TA3 PO; -PANT40TA5 PO; +PANT40TA6 PO; +TRAM50TA2 PO
--- NOTE | 2020-08-30 23:28 | NUR ---
PT BIB [facility] FROM HOME FOR A GLF AND NOTABLE DEFORMITY ON THE LEFT SHOULDER. PT PAIN 10/10 ON ARRIVAL, PT HAS BEEN SELF MEDICATING WITH ALCOHOL AT HOME 3-4 SHOTS DAILY, AND NUMEROUS NARCOTICS. PT FIRST FALL WAS 6 MONTHS AGO, HAD A BREAK IN THE HUMERUS HEAD. PT HAS HX OF COPD,HTN, STAGE 4 LUNG CANCER. PT MEDICATED EN ROUTE FOR PAIN, NOW APPEARS COMFORTABLE AND RESTING. PT HAD 2 VERSED, 20 KETAMINE DRIP, 100 MCG FENTANY EN ROUTE, PT NAD, CMS INTACT, PULSES 2+. WCTM. PT PLACED ON SPO2/BP/ECG MONITORING. VSS. KEYLA RESENDIZ AT BS FOR EVAL AND POC
[2020-08-30] MEDS ORDERED: SODIUM CHLORIDE 0.9% 1,000 ML IV ONE (23:29)
[2020-08-30] MEDS ORDERED: FENTANYL PF 100 MCG/2ML IVPush PRN (23:30)
[2020-08-30] MEDS ORDERED: SODIUM CHLORIDE FLUSH 10ML SYR IVF ONE (23:30)
[2020-08-30 23:56] LABS: BASOPHILS % (AUTO) 0 % (0-1); EOSINOPHILS # (AUTO) 0.03 x10^3/uL (0-0.4); EOSINOPHILS % (AUTO) 0 % (1-7); LYMPHOCYTES # (AUTO) 0.45 x10^3/uL (1-3.4); LYMPHOCYTES % (AUTO) 6 % (22-44); MD NO; MEAN CORPUSCULAR HEMOGLOBIN 31.6 pg (27.5-34.5); MEAN CORPUSCULAR HGB CONC 33.2 g/dL (33.2-36.2); MEAN PLATELET VOLUME 8.2 fL (7.4-10.4); MONOCYTES # (AUTO) 0.57 x10^3/uL (0.2-0.8); MONOCYTES % (AUTO) 7 % (2-9); NEUTROPHILS # (AUTO) 7.21 x10^3/uL (1.8-6.8); NEUTROPHILS % (AUTO) 87 % (42-75); PLATELET COUNT 237 x10^3/uL (130-400); RED BLOOD COUNT 3.86 x10^6/uL (4.38-5.82); RED CELL DISTRIBUTION WIDTH 16.7 % (9.4-14.8)
[2020-08-31 00:07] LABS: ALBUMIN 2.4 g/dL (3.4-5.0); ANION GAP 10 mmol/L (5-15); CALCIUM 7.8 mg/dL (8.5-10.1); CHLORIDE 97 mmol/L (98-107)
[2020-08-31 00:11] LABS: ALANINE AMINOTRANSFERASE 24 U/L (12-78); ALKALINE PHOSPHATASE 119 U/L (45-117); CREATININE 0.68 mg/dL (0.7-1.3)
[2020-08-31] MEDS ORDERED: POTASSIUM CHLORIDE 40 MEQ in SODIUM CHLORIDE 0.9% 500 ML IV ONE ×2 (00:30→07:00)
[2020-08-31] MEDS ORDERED: IBUP-1221 PO (00:49)
[2020-08-31] MEDS ORDERED: FENTANYL PF 100 MCG/2ML ONE ×2 (00:53→01:56)
[2020-08-31] MEDS ORDERED: MAGNESIUM SULFATE PMX 2GM/50ML 50 ML IV ONE ×2 (01:30→07:00)
[2020-08-31] MEDS ORDERED: MAGNESIUM SULFATE PMX 2GM/50ML 50 ML ONE (01:32)
[2020-08-31] MEDS ORDERED: NS + 20MEQ KCL 1,000 ML IV SCH (01:33)
--- NOTE | 2020-08-31 01:49 | NUR ---
PT RESTING ON GURNEY, STATES HIS PAIN IS BACK, PT INFORMED THAT RN WILL GET HIM MORE PAIN MEDS ONCE WE HAVE A URINE SAMPLE. ЕЛЕНА, ROD. WCTM. WAITING FOR ADMIT.
[2020-08-31] MEDS ORDERED: ACETAMINOPHEN 325 MG TABLET PO PRN (02:00)
[2020-08-31] MEDS ORDERED: DOCUSATE 100 MG CAPSULE PO PRN (02:00)
[2020-08-31 02:04] VITALS: BP 148/75
--- NOTE | 2020-08-31 02:07 | NUR ---
KEYLA RESENDIZ VERBAL ORDER TO GIVE MAG OVER 30 MINUTES. NAD. GALVEZ.
[2020-08-31] MEDS: morphine SULFATE 10 MG/ML, 1ML IVPush PRN ×4 (02:38→22:08)
[2020-08-31] MEDS ORDERED: ALBUTEROL HFA 90 MCG/SPRAY INH PRN (03:00)
[2020-08-31 05:28] VITALS: BP 142/69
[2020-08-31] MEDS ORDERED: POTASSIUM CHLORIDE 20 MEQ TAB.ER.PRT PO ONE (07:00)
[2020-08-31 07:03] VITALS: BP 113/57
[2020-08-31] MEDS ORDERED: POTASSIUM PHOSPHATE 22 MEQ in SODIUM CHLORIDE 0.9% 500 ML IV ONE ×2 (07:30→16:00)
[2020-08-31] MEDS ORDERED: LORazepam 1MG TABLET PO PRN ×3 (09:00)
[2020-08-31] MEDS ORDERED: FLUTICASONE/VILANTEROL 200-25MCG/INH INH SCH (09:00)
[2020-08-31] MEDS ORDERED: LORazepam 0.5MG TABLET PO PRN (09:00)
[2020-08-31] MEDS ORDERED: LORazepam 2 MG/ML, 1ML IV PRN ×4 (09:00)
[2020-08-31] MEDS: Fluticasone/Umeclidin/Vilanter (Trelegy Ellipta 100-62.5-25 INH SCH (09:28)
[2020-08-31 12:13] VITALS: BP 126/64
[2020-08-31] MEDS: DIAZEPAM 5 MG TABLET PO SCH ×3 (12:35→20:57)
[2020-08-31 19:10] VITALS: BP 124/74
[2020-08-31] MEDS: MELATONIN 5 MG TABLET PO SCH (20:57)
[2020-09-01 00:49] VITALS: BP 119/69
[2020-09-01 01:45] LABS: MICROSCOPIC INDICATED
[2020-09-01] MEDS: morphine SULFATE 10 MG/ML, 1ML IVPush PRN ×3 (03:14→18:44)
[2020-09-01 04:23] LABS: ANION GAP 7 mmol/L (5-15); CALCIUM 7.4 mg/dL (8.5-10.1); CHLORIDE 105 mmol/L (98-107)
[2020-09-01 04:24] LABS: CREATININE 0.34 mg/dL (0.7-1.3)
[2020-09-01 04:31] LABS: BASOPHILS # (AUTO) 0.04 x10^3/uL (0-0.1); BASOPHILS % (AUTO) 1 % (0-1); EOSINOPHILS # (AUTO) 0.07 x10^3/uL (0-0.4); EOSINOPHILS % (AUTO) 1 % (1-7); LYMPHOCYTES # (AUTO) 1.16 x10^3/uL (1-3.4); LYMPHOCYTES % (AUTO) 21 % (22-44); MD NO; MEAN CORPUSCULAR HEMOGLOBIN 31.8 pg (27.5-34.5); MEAN CORPUSCULAR HGB CONC 33.3 g/dL (33.2-36.2); MEAN PLATELET VOLUME 8.7 fL (7.4-10.4); MONOCYTES % (AUTO) 9 % (2-9); NEUTROPHILS # (AUTO) 3.81 x10^3/uL (1.8-6.8); NEUTROPHILS % (AUTO) 68 % (42-75); PLATELET COUNT 198 x10^3/uL (130-400); RED BLOOD COUNT 3.27 x10^6/uL (4.38-5.82); RED CELL DISTRIBUTION WIDTH 17.2 % (9.4-14.8)
[2020-09-01] MEDS: DIAZEPAM 5 MG TABLET PO SCH ×4 (05:17→21:14)
[2020-09-01 07:13] VITALS: BP 124/76
[2020-09-01] MEDS ORDERED: POTASSIUM CHLORIDE 20 MEQ TAB.ER.PRT PO ONE (07:30)
[2020-09-01] MEDS: Fluticasone/Umeclidin/Vilanter (Trelegy Ellipta 100-62.5-25 INH SCH (08:50)
[2020-09-01] MEDS: CEFTRIAXONE PMX 1GM/50ML 50 ML IV SCH (09:29)
[2020-09-01 13:43] VITALS: BP 120/81
[2020-09-01] MEDS ORDERED: POTASSIUM PHOSPHATE 22 MEQ in SODIUM CHLORIDE 0.9% 500 ML IV ONE (15:30)
[2020-09-01] MEDS ORDERED: MAGNESIUM SULFATE PMX 2GM/50ML 50 ML IV ONE (15:30)
[2020-09-01] MEDS: MELATONIN 5 MG TABLET PO SCH (21:15)
[2020-09-01 22:24] VITALS: BP 131/81
[2020-09-01] MEDS ORDERED: IBUPROFEN 600 MG TABLET PO ONE (23:30)
[2020-09-02 03:41] VITALS: BP 115/68
[2020-09-02 04:03] LABS: ANION GAP 8 mmol/L (5-15); CALCIUM 7.7 mg/dL (8.5-10.1); CHLORIDE 104 mmol/L (98-107); CREATININE 0.38 mg/dL (0.7-1.3)
[2020-09-02] MEDS: DIAZEPAM 5 MG TABLET PO SCH ×4 (06:00→21:26)
[2020-09-02 06:29] VITALS: BP 119/81
[2020-09-02] MEDS: CEFTRIAXONE PMX 1GM/50ML 50 ML IV SCH (08:23)
[2020-09-02] MEDS: Fluticasone/Umeclidin/Vilanter (Trelegy Ellipta 100-62.5-25 INH SCH (08:29)
[2020-09-02] MEDS ORDERED: POTASSIUM CHLORIDE 20 MEQ TAB.ER.PRT PO ONE (09:30)
[2020-09-02 12:06] VITALS: BP 121/78
[2020-09-02 19:05] VITALS: BP 126/84
[2020-09-02] MEDS: MELATONIN 5 MG TABLET PO SCH (21:26)
[2020-09-02] MEDS: morphine SULFATE 10 MG/ML, 1ML IVPush PRN (21:29)
[2020-09-03 02:00] VITALS: BP 119/79
[2020-09-03 05:55] LABS: ANION GAP 7 mmol/L (5-15); CALCIUM 7.9 mg/dL (8.5-10.1); CHLORIDE 100 mmol/L (98-107); CREATININE 0.48 mg/dL (0.7-1.3)
[2020-09-03 06:37] VITALS: BP 115/75
[2020-09-03] MEDS: CEFTRIAXONE PMX 1GM/50ML 50 ML IV SCH (08:20)
[2020-09-03] MEDS: Fluticasone/Umeclidin/Vilanter (Trelegy Ellipta 100-62.5-25 INH SCH (08:29)
[2020-09-03] MEDS: morphine SULFATE 10 MG/ML, 1ML IVPush PRN ×2 (08:51→17:59)
[2020-09-03] MEDS: POTASSIUM CHLORIDE 20 MEQ TAB.ER.PRT PO SCH (08:57)
[2020-09-03] MEDS ORDERED: FLU VACC QS2020-21(6MOS UP)/PF 60MCG/0.5 ML SYR IM-VACC ONE (12:00)
[2020-09-03 12:10] VITALS: BP 97/64
[2020-09-03] MEDS: CIPROFLOXACIN/PMX 400MG/200ML 200 ML IV SCH (15:41)
[2020-09-03 18:52] VITALS: BP 126/72
[2020-09-03] MEDS: MELATONIN 5 MG TABLET PO SCH (20:09)
[2020-09-04 01:45] VITALS: BP 119/67
[2020-09-04] MEDS: morphine SULFATE 10 MG/ML, 1ML IVPush PRN (01:59)
[2020-09-04] MEDS: CIPROFLOXACIN/PMX 400MG/200ML 200 ML IV SCH ×2 (03:46→15:47)
[2020-09-04 05:49] LABS: ALBUMIN 1.9 g/dL (3.4-5.0); ANION GAP 8 mmol/L (5-15); CALCIUM 8.1 mg/dL (8.5-10.1); CHLORIDE 104 mmol/L (98-107); CREATININE 0.53 mg/dL (0.7-1.3)
[2020-09-04 07:14] VITALS: BP 144/89
[2020-09-04] MEDS ORDERED: OXYcodone IR 5MG TABLET ONE (08:50)
[2020-09-04] MEDS: OXYcodone IR 5MG TABLET PO PRN ×4 (08:54→23:30)
[2020-09-04] MEDS: POTASSIUM CHLORIDE 20 MEQ TAB.ER.PRT PO SCH (08:54)
[2020-09-04] MEDS: Fluticasone/Umeclidin/Vilanter (Trelegy Ellipta 100-62.5-25 INH SCH (09:00)
[2020-09-04 12:32] VITALS: BP 143/93
[2020-09-04] MEDS ORDERED: POTASSIUM CHLORIDE 20 MEQ TAB.ER.PRT PO ONE ×2 (16:30→20:00)
[2020-09-04 19:12] VITALS: BP 144/73
[2020-09-04] MEDS: MELATONIN 5 MG TABLET PO SCH (20:12)
[2020-09-05 00:24] VITALS: BP 135/84
[2020-09-05] MEDS: CIPROFLOXACIN/PMX 400MG/200ML 200 ML IV SCH ×2 (04:31→15:31)
[2020-09-05 07:02] VITALS: BP 129/77
[2020-09-05] MEDS: POTASSIUM CHLORIDE 20 MEQ TAB.ER.PRT PO SCH (07:14)
[2020-09-05] MEDS: OXYcodone IR 5MG TABLET PO PRN ×4 (07:14→21:02)
[2020-09-05 12:40] VITALS: BP 130/82
[2020-09-05 19:00] VITALS: BP 137/81
[2020-09-05] MEDS: MELATONIN 5 MG TABLET PO SCH (21:02)
[2020-09-06 01:02] VITALS: BP 132/80
[2020-09-06] MEDS: OXYcodone IR 5MG TABLET PO PRN ×5 (01:03→19:46)
[2020-09-06] MEDS: CIPROFLOXACIN/PMX 400MG/200ML 200 ML IV SCH ×2 (03:41→15:33)
[2020-09-06 07:18] VITALS: BP 120/79
[2020-09-06] MEDS: POTASSIUM CHLORIDE 20 MEQ TAB.ER.PRT PO SCH (08:19)
[2020-09-06 12:41] VITALS: BP 162/82
[2020-09-06] MEDS: MELATONIN 5 MG TABLET PO SCH (19:48)
[2020-09-06 19:53] VITALS: BP 111/71
[2020-09-07] MEDS: OXYcodone IR 5MG TABLET PO PRN ×5 (01:11→22:05)
[2020-09-07 01:39] VITALS: BP 107/70
[2020-09-07] MEDS: CIPROFLOXACIN/PMX 400MG/200ML 200 ML IV SCH ×2 (03:59→15:04)
[2020-09-07 07:54] VITALS: BP 117/71
[2020-09-07] MEDS: POTASSIUM CHLORIDE 20 MEQ TAB.ER.PRT PO SCH (08:28)
[2020-09-07] MEDS: morphine SULFATE 10 MG/ML, 1ML IVPush PRN (08:28)
[2020-09-07 13:56] VITALS: BP 114/78
[2020-09-07 19:24] VITALS: BP 140/83
[2020-09-07] MEDS: CIPROFLOXACIN 500 MG TABLET PO SCH (20:32)
[2020-09-07] MEDS: MELATONIN 5 MG TABLET PO SCH (20:32)
[2020-09-08 00:50] VITALS: BP 107/69
[2020-09-08] MEDS: OXYcodone IR 5MG TABLET PO PRN ×4 (02:15→21:26)
[2020-09-08 07:11] VITALS: BP 113/68
[2020-09-08] MEDS: CIPROFLOXACIN 500 MG TABLET PO SCH ×2 (08:24→21:25)
[2020-09-08] MEDS: POTASSIUM CHLORIDE 20 MEQ TAB.ER.PRT PO SCH (08:24)
[2020-09-08 12:14] VITALS: BP 132/79
[2020-09-08 19:17] VITALS: BP 128/63
[2020-09-08] MEDS: MELATONIN 5 MG TABLET PO SCH (21:26)
[2020-09-09 01:24] VITALS: BP 131/80
[2020-09-09] MEDS: OXYcodone IR 5MG TABLET PO PRN ×4 (02:22→18:48)
[2020-09-09 06:44] VITALS: BP 111/69
[2020-09-09] MEDS: CIPROFLOXACIN 500 MG TABLET PO SCH ×2 (09:02→20:54)
[2020-09-09] MEDS: POTASSIUM CHLORIDE 20 MEQ TAB.ER.PRT PO SCH (09:02)
[2020-09-09 12:04] VITALS: BP 118/69
[2020-09-09 18:56] VITALS: BP 116/73
[2020-09-09] MEDS: MELATONIN 5 MG TABLET PO SCH (20:54)
[2020-09-10 01:13] VITALS: BP 109/68
[2020-09-10] MEDS: OXYcodone IR 5MG TABLET PO PRN ×4 (02:05→20:51)
[2020-09-10] MEDS: POTASSIUM CHLORIDE 20 MEQ TAB.ER.PRT PO SCH (08:16)
[2020-09-10] MEDS: CIPROFLOXACIN 500 MG TABLET PO SCH ×2 (08:16→20:51)
[2020-09-10 08:27] VITALS: BP 117/71
[2020-09-10 12:45] VITALS: BP 100/65
[2020-09-10 18:47] VITALS: BP 132/80
[2020-09-10] MEDS: MELATONIN 5 MG TABLET PO SCH (20:50)
[2020-09-11 01:36] VITALS: BP 115/69
[2020-09-11] MEDS: OXYcodone IR 5MG TABLET PO PRN ×5 (01:54→22:25)
[2020-09-11] MEDS: POTASSIUM CHLORIDE 20 MEQ TAB.ER.PRT PO SCH (08:14)
[2020-09-11 08:38] VITALS: BP 121/74
[2020-09-11 12:34] VITALS: BP 105/64
[2020-09-11 20:12] VITALS: BP 111/71
[2020-09-11] MEDS: GUAIFENESIN ER 600 MG TABLET PO SCH (20:15)
[2020-09-11] MEDS: MELATONIN 5 MG TABLET PO SCH (20:15)
[2020-09-12 00:43] VITALS: BP 115/77
[2020-09-12] MEDS: OXYcodone IR 5MG TABLET PO PRN ×4 (02:25→22:38)
[2020-09-12 08:02] VITALS: BP 90/60
[2020-09-12] MEDS: GUAIFENESIN ER 600 MG TABLET PO SCH ×2 (08:55→20:24)
[2020-09-12] MEDS: FLUTICASONE/VILANTEROL 200-25MCG/INH INH SCH (08:56)
[2020-09-12] MEDS: POTASSIUM CHLORIDE 20 MEQ TAB.ER.PRT PO SCH (08:56)
[2020-09-12 12:43] VITALS: BP 133/80
[2020-09-12 19:08] VITALS: BP 129/69
[2020-09-12] MEDS: MELATONIN 5 MG TABLET PO SCH (20:24)
[2020-09-13 02:00] VITALS: BP 133/74
[2020-09-13] MEDS: OXYcodone IR 5MG TABLET PO PRN ×4 (02:57→18:04)
[2020-09-13 07:16] VITALS: BP 120/73
[2020-09-13] MEDS: FLUTICASONE/VILANTEROL 200-25MCG/INH INH SCH (08:19)
[2020-09-13] MEDS: GUAIFENESIN ER 600 MG TABLET PO SCH ×2 (08:29→20:04)
[2020-09-13] MEDS: POTASSIUM CHLORIDE 20 MEQ TAB.ER.PRT PO SCH (08:29)
[2020-09-13 12:34] VITALS: BP 110/72
[2020-09-13 19:03] VITALS: BP 131/75
[2020-09-13] MEDS: MELATONIN 5 MG TABLET PO SCH (20:04)
[2020-09-14 00:37] VITALS: BP 110/72
[2020-09-14] MEDS: OXYcodone IR 5MG TABLET PO PRN ×3 (01:14→13:09)
[2020-09-14 07:30] VITALS: BP 115/76
[2020-09-14] MEDS: FLUTICASONE/VILANTEROL 200-25MCG/INH INH SCH (08:13)
[2020-09-14] MEDS: GUAIFENESIN ER 600 MG TABLET PO SCH (08:44)
[2020-09-14] MEDS: POTASSIUM CHLORIDE 20 MEQ TAB.ER.PRT PO SCH (08:44)
[2020-09-14] MEDS ORDERED: FLU VACC QS2020-21(6MOS UP)/PF 60MCG/0.5 ML SYR IM ONE (13:30)
[2020-09-14 13:50] VITALS: BP 149/75
[2020-09-14] MEDS ORDERED: OXYC5TAB3 PO (13:56)
[2020-09-14] MEDS ORDERED: ALBU18HF INH (13:56)
[2020-09-14] MEDS ORDERED: MELA5TAB14 PO (13:56)
[2020-09-14] MEDS ORDERED: GUAI600T31 PO (13:56)
== END 2020-09-14 16:10 | DRG 640 ==
LOC: ED 08-31 00:44 → INTOOBSV 08-31 01:19 → EDIP 08-31 01:19 → 4WST 08-31 02:06 → OBSVTOIN 08-31 10:21 → 3N 09-13 07:43
PROVIDERS: ADMIT Family Medicine; ATTEND Internal Medicine
DX: E87.6 Hypokalemia (principal); E43 Unspecified severe protein-calorie malnutrition; Z68.1 Body mass index [BMI] 19.9 or less, adult; J44.1 Chronic obstructive pulmonary disease with (acute) exacerbation; N39.0 Urinary tract infection, site not specified; M84.422A Pathological fracture, left humerus, initial encounter for fracture; D64.9 Anemia, unspecified; Z88.0 Allergy status to penicillin; F10.10 Alcohol abuse, uncomplicated; K70.9 Alcoholic liver disease, unspecified
CPT/HCPCS: 29105; 36415; 70450; 71045; 72125; 74018; 80048; 80053; 80307; 81001; 82040; 83735; 84100; 84132; 85025; 87040; 87077; 87086; 87186; 90686; 93005; 94060; 94640; 96361; 96374; 96375; G0378; J0696; J0744; J3010; J3480; J2270; J3475; J7030; J7040

== ENCOUNTER 2021-02-07 12:17 | Emergency (ER) | payer SELFPAY ==
[~2021-02-07] VITALS: Ht 172.7 cm; Wt 60.0 kg
[~2021-02-07 12:17] MED LIST changes: +GUAI600T31 PO; +IBUP-1221 PO; +MELA5TAB14 PO; -OXYC-307 PO; +OXYC-380 PO; -OXYC5TAB3 PO; +OXYC5TAB98 PO; +TIZA-106 PO; -TIZA2TAB4 PO
[2021-02-07] MEDS ORDERED: ASPIRIN 325 MG TABLET PO ONE (13:00)
--- NOTE | 2021-02-07 13:02 | NUR ---
REPORT FROM ENMANUEL WONG. U/S AT BEDSIDE.
[2021-02-07] MEDS ORDERED: ASPIRIN 325 MG TABLET ONE (13:03)
[2021-02-07] MEDS ORDERED: SODIUM CHLORIDE 0.9% 1,000ML IVBOLUS ONE (13:30)
[2021-02-07] MEDS ORDERED: SODIUM CHLORIDE FLUSH 10ML SYR IVF ONE (13:30)
[2021-02-07 13:42] LABS: BASOPHILS % (AUTO) 1 % (0-1); EOSINOPHILS % (AUTO) 0 % (1-7); LYMPHOCYTES % (AUTO) 26 % (22-44); MEAN CORPUSCULAR HEMOGLOBIN 30.6 pg (27.5-34.5); MEAN CORPUSCULAR HGB CONC 33.2 g/dL (33.2-36.2); MEAN PLATELET VOLUME 8.6 fL (7.4-10.4); MONOCYTES % (AUTO) 9 % (2-9); NEUTROPHILS % (AUTO) 64 % (42-75); PLATELET COUNT 140 x10^3/uL (130-400); RED BLOOD COUNT 4.61 x10^6/uL (4.38-5.82); RED CELL DISTRIBUTION WIDTH 15.6 % (9.4-14.8)
[2021-02-07 13:45] LABS: MD NO
[2021-02-07 13:52] LABS: ALBUMIN 3.8 g/dL (3.4-5.0); ANION GAP 9 mmol/L (5-15); CALCIUM 8.2 mg/dL (8.5-10.1); CHLORIDE 107 mmol/L (98-107)
[2021-02-07 13:59] LABS: ALANINE AMINOTRANSFERASE 18 U/L (12-78); ALKALINE PHOSPHATASE 103 U/L (45-117); BILIRUBIN,TOTAL 0.9 mg/dL (0.2-1.0); CREATININE 0.83 mg/dL (0.7-1.3); TROPONIN I < 0.015 ng/mL (0.000-0.045)
--- NOTE | 2021-02-07 14:25 | NUR ---
PT RESTING, RESPIRATIONS EVEN AND UNLABORED, CARDIAC, SP02 AND BP MONITORS IN PLACE. CALL LIGHT WITHIN REACH.
--- NOTE | 2021-02-07 15:47 | NUR ---
urine collected and sent to lab
--- NOTE | 2021-02-07 15:48 | NUR ---
pt resting comfortably in bed, respirations even and unlabored, awaiting disposition
[2021-02-07 15:58] LABS: MICROSCOPIC AUTO
[2021-02-07 16:57] LABS: TROPONIN I < 0.015 ng/mL (0.000-0.045)
[2021-02-07 18:08] VITALS: BP 162/83
--- NOTE | 2021-02-07 18:08 | NUR ---
pt resting on aniyah requesting pain meds for his headache. will notify md. call light within reach and all monitors in place.
[2021-02-07] MEDS ORDERED: ACETAMINOPHEN 500 MG TABLET ONE (18:25)
[2021-02-07] MEDS ORDERED: ACETAMINOPHEN 500 MG TABLET PO ONE (18:30)
[2021-02-07] MEDS ORDERED: IBUPROFEN 600 MG TABLET PO ONE (18:30)
[2021-02-07] MEDS ORDERED: IBUPROFEN 200 MG TABLET PO ONE (18:30)
[2021-02-07] MEDS ORDERED: IBUPROFEN 200 MG TABLET ONE (18:31)
--- NOTE | 2021-02-07 19:07 | NUR ---
IV dc cath intact pt vss, steady gait. To f/u with pcp or return to er if worse or concerns.
== END 2021-02-07 19:33 | disposition home or self-care (01) ==
LOC: ED 15:10
DX: G44.219 Episodic tension-type headache, not intractable (principal); N30.00 Acute cystitis without hematuria; R07.89 Other chest pain; R55 Syncope and collapse; R42 Dizziness and giddiness; I10 Essential (primary) hypertension; J44.9 Chronic obstructive pulmonary disease, unspecified; Z87.891 Personal history of nicotine dependence
CPT/HCPCS: 36415; 70450; 71045; 80053; 80320; 81001; 83880; 84484; 85025; 87077; 87086; 87186; 93005; 93971; 96360; 96361; 99285; J7030; G0480